=== PATIENT | female | born 1945 | race Hispanic/Latino ===

== ENCOUNTER → 2018-09-12 | Day surgery (SDC) | payer MEDICARE ==
[2018-09-08 12:45] LABS: BASOPHILS % 0.3 % (0.0-1.0); EOSINOPHILS # (AUTO) 0.2 (0.0-0.4); EOSINOPHILS % 1.7 % (0.0-6.0); HEMATOCRIT 39.9 % (34.2-44.1); HEMOGLOBIN 13.3 g/dL (12.0-16.0); LYMPHOCYTES # (AUTO) 2.8 (1.0-3.2); LYMPHOCYTES % 22.4 % (18.0-39.1); MEAN CORPUSCULAR HEMOGLOBIN 27.3 pg (28-32); MEAN CORPUSCULAR HGB CONC 33.3 g/dL (31-35); MEAN CORPUSCULAR VOLUME 81.8 fL (81-99); MONOCYTES # (AUTO) 0.9 (0.2-0.8); MONOCYTES % 7.2 % (4.4-11.3); NEUTROPHILS # (AUTO) 8.6 (2.1-6.9); NEUTROPHILS % 68.1 % (38.7-80.0); PLATELET COUNT 272 x10e3/uL (140-360); RED BLOOD COUNT 4.88 x10e6/uL (3.6-5.1); RED CELL DISTRIBUTION WIDTH 14.2 % (11.7-14.4)
[2018-09-08 13:07] LABS: ALANINE AMINOTRANSFERASE 16 IU/L (0-55); ALBUMIN 3.8 g/dL (3.5-5.0); ALKALINE PHOSPHATASE 101 IU/L (40-150); ANION GAP 9.7 mmol/L (8-16); BLOOD UREA NITROGEN 11 mg/dL (7-26); BUN/CREATININE RATIO 15 (6-25); CALCIUM 9.8 mg/dL (8.4-10.2); CARBON DIOXIDE 28 mmol/L (22-29); CHLORIDE 104 mmol/L (98-107); CREATININE, SERUM 0.75 mg/dL (0.57-1.11); EST GLOMERULAR FILTRATION RATE > 60 ML/MIN (60-); GLUCOSE 99 mg/dL (74-118); POTASSIUM 3.7 mmol/L (3.5-5.1); SODIUM 138 mmol/L (136-145)
[2018-09-08 13:59] LABS: CHOL/HDL RATIO 3.7 (3.0-3.6); CHOLESTEROL 253 MD/DL (0-199); HDL CHOLESTEROL 69 MG/DL (40-60); LDL CHOLESTEROL 156 MG/DL (60-130); TRIGLYCERIDES 141 MG/DL (0-149)
[~2018-09-12] VITALS: Ht 160 cm; Wt 70.8 kg
[~2018-09-12] MED LIST: ALPRAZOLAM 0.5 MG TAB ONE; CARTIA XT240 MG PO; DIOVAN HCT 3201 EACH PO; DIOVAN160 MG PO; DIPHENHYDRAMINE HCL 25 MG CAP ONE; ESTRADIOL1 MG PO; FENTANYL CITRATE/PF 100MCG/2 ML INJ ONE; HEPARIN SOD/SOD CHLORIDE 2,000 ML ONE; IOPAMIDOL 300MG/ML 100 ML INFUS..BTL IV ONE; LEVOTHYROXINE100 MCG PO; LIDOCAINE HCL 1% LOCAL INJ 20 ML VIAL ONE; LOSARTAN POTAS100 MG PO; METOPROLOL SUC100 MG PO; MIDAZOLAM HCL 2 MG/2 ML VIAL ONE; SODIUM CHLORIDE 0.9% 1000ML 0 ML ONE; SODIUM CHLORIDE 0.9% 1000ML 1,000 ML ONE; VERAPAMIL HCL 2.5 MG/ML 2 ML VIAL ONE
--- OUTSIDE RECORDS SUMMARY | 2018-09-12 09:00 | XMS REPORT ---
Author Author [facility] Address Unknown Phone Unavailable Care Team Providers Care Stock Worker And Deliverer Name Role Phone Claudio COSTA Unavailable Unavailable Problems This patient has no known problems. Allergies, Adverse Reactions, Alerts This patient has no known allergies or adverse reactions. Medications This patient has no known medications. Results Test Description Test Time Test Comments Text Results Atomic Results Result Comments CHEST SINGLE (PORTABLE) [place] [address] Patient Name: LORRI FOSTER MR #: [id number] : 1945 Age/Sex: 71/F Req #: [id number] Adm Physician: Ordered by: VALENTÍN COSTA MD Report #: [id number] Location: ER Room/Bed: Procedure: [id number] DX/CHEST SINGLE (PORTABLE) Exam Date: 04/28/17 Exam Time: 0730 REPORT STATUS: Signed PROCEDURE: CHEST SINGLE (PORTABLE) COMPARISON: Chest x-ray from 12/30/14 INDICATIONS: GENERALIZED WEAKNESS FINDINGS: Lines and tubes: None Cardiac silhouette is upper normal size for projection. No focal pulmonary opacity, pleural effusion or pneumothorax. Upper abdomen unremarkable with no free air. No acute bony abnormality. There is slight widening of the left acromioclavicular joint since previous exam, possibly with resection of the distal left clavicle. CONCLUSION: No evidence for acute disease. Borderline heart size, unchanged from previous exam. Dictated by: Alden Reddy M.D. on 04/28/2017 at 7:57 Electronically approved by: Alden Reddy M.D. on 04/28/2017 at 7:57 Dictated By: ALDEN REDDY MD 6 Transcribed By: TIM on 04/28/17756 COPY TO: VALENTÍN COSTA MD
--- NOTE | 2018-09-12 10:00 | NUR ---
1000am Received pt in #[address] Holland. Preop and Xanax 0.5 Benedryl 50mg po. left ac iv started #20x1 stick. Iv secured. 1000n at bedside with dial a flow.Family at bedside. 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 Bed brakes on and side rails up. Handoff to Giles TILLEY denies c/o some what emotional with crying. Reassurance given. ds/rn
--- NOTE | 2018-09-12 10:57 | NUR ---
1057am Received from Peripheral angio Dr Holland no fix. Monitor Sinus cata.Back to baseline orientation. Respiration regular 98% on room air. Denies necessity to defecate Abdomen soft and non tender. Bilateral femoral pulses present Iv infusing at 100cchr. NO s/s infiltration. Tolerating po intake. Vascade to left femoral site w/o s/s hematoma or bleeding. Denies CP or SOB. ds/rn
[2018-09-12 10:58] VITALS: BP 146/51
[2018-09-12 11:00] VITALS: BP 145/77
[2018-09-12 11:15] VITALS: BP 136/54
[2018-09-12 11:30] VITALS: BP 145/47
[2018-09-12 11:45] VITALS: BP 135/58
[2018-09-12 12:00] VITALS: BP_SYST 148; BP_SYST 149; BP_DIAS 58; BP_DIAS 88
--- NOTE | 2018-09-12 12:00 | NUR ---
1200pm Discharged home per w/c left vascade site intact w/o hematoma or bleeding. POC discussed with family and copies with pt. No distress w/o co pain iv removed site w/o s/s infiltration Coban dressing. Escorted to car per [employer] employee . 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 stephen/rn
--- NOTE | 2018-09-12 17:21 | Operative Report ---
DATE OF PROCEDURE: 09/12/2018 SURGEON: Samson Holland MD INDICATIONS: Peripheral arterial disease. PROCEDURES PERFORMED: 1. Abdominal aortogram. 2. Bilateral lower extremity angiogram. 3. Third-order catheter placed in the left femoral artery and right superficial femoral artery. 4. Deployment of left groin Vascade closure device. COMPLICATIONS: None. RECOMMENDATIONS: Medical therapy. DESCRIPTION OF PROCEDURE: Access obtained in the left femoral artery, a 6-Wallisian sheath placed. Abdominal aortogram demonstrated mild disease of the abdominal aorta and iliacs bilaterally. Sheath was then advanced in the left femoral artery and right superficial femoral artery. Right leg angiogram demonstrated 50% stenosis of the right mid superficial femoral artery and 90% stenosis of the left superficial femoral artery with 3% three-vessel runoff. No intervention on the right leg was indicated. Left groin repaired using Vascade closure device. The patient discharged home same day with recommendation for staged intervention of the left mid superficial femoral artery. MD COLETTE Krueger/MODL /[id number]
== END | disposition home or self-care (01) ==
LOC: CATH LAB 08:57
PROVIDERS: ATTEND Internal Medicine Interventional Cardiology
DX: I70.203 Unspecified atherosclerosis of native arteries of extremities, bilateral legs (principal); I10 Essential (primary) hypertension; E07.9 Disorder of thyroid, unspecified; Z01.812 Encounter for preprocedural laboratory examination; Z68.31 Body mass index [BMI] 31.0-31.9, adult; Z82.49 Family history of ischemic heart disease and other diseases of the circulatory system; Z82.3 Family history of stroke
CPT/HCPCS: 36247; 36415; 75625; 75716; 80053; 80061; 85025; C1760; C1769 ×2; J2001; J2250; J7030; Q9967; 36246